=== PATIENT | male | born 1970 | race Two or more races ===

== ENCOUNTER 2019-06-27 08:06 | Inpatient (IN) | payer OTHER ==
[2019-06-27 08:43] VITALS: BMI 20.8
--- NOTE | 2019-06-27 08:57 | HP ---
COWS - Scale Resting Pulse: 0= [place] 80 or Below Sweatin= Chills/Flushing Restless Observation: 5= Unable to Sit Still Pupil Size: 1= Pupils >than Normal Bone or Joint Aches: 2= Severe Diffuse Aches Runny Nose/ Eye Tearin= Runny Nose/Eyes GI Upset > 30mins: 2= Nausea/Diarrhea Tremor Observation: 1= Tremor [place], Not Seen Yawning Observation: 2= >3x During Session Anxiety or Irritability: 2=Irritable/Anxious Goose Flesh Skin: 0=Smooth Skin COWS Score: 18 CIWA Score - Admission Criteria OASAS Guidelines: Admission for Medically Managed Detox: Requires at least one of the followin. CIWA greater than 12 2. Seizures within the past 24 hours 3. Delirium tremens within the past 24 hours 4. Hallucinations within the past 24 hours 5. Acute intervention needed for co occurring medical disorder 6. Acute intervention needed for co occurring psychiatric disorder 7. Severe withdrawal that cannot be handled at a lower level of care (continued vomiting, continued diarrhea, abnormal vital signs) requiring intravenous medication and/or fluids 8. Admitting History and Physical - Smoking History Smoking history: Current every day smoker Have you smoked in the past 12 months: Yes Aproximately how many cigarettes per day: 10 - Alcohol/Substance Use Hx Alcohol Use: No Admission ROS [facility] Allergies/Adverse Reactions: Allergies Allergy/AdvReac Type Severity Reaction Status Date / Time No Known Allergies Allergy Verified 06/27/19 08:34 History of Present Illness: Search Terms: laith kamara, 1970 Search Date: 06/27/2019 08:52:24 AM This report was requested by: Brianna Ernandez | Reference #: [id number] There are no results for the search terms that you entered. pt here requesting detox from heroin use , reports 5 bundles /day iv in UE , needles from store , + abscess , denies OD , latest use yesterday , current symptoms as above cocaine : via inhalation " not a lot " daily cannabis : daily use " a little bit " tobacco : 1/2 ppd denies etoh denies other illicits Exam Limitations: Clinical Condition - Ebola screening Have you traveled outside of the country in the last 21 days: No (N) Have you had contact with anyone from an Ebola affected area: No - Review of Systems Constitutional: Loss of Appetite EENT: reports: See HPI, Nose Congestion Respiratory: reports: No Symptoms reported Cardiac: reports: No Symptoms Reported GI: reports: See HPI : reports: No Symptoms Reported Musculoskeletal: reports: See HPI Integumentary: reports: See HPI Neuro: reports: No Symptoms reported Endocrine: reports: No Symptoms Reported Psychiatric: reports: Orientated x3, Agitated, Anxious Patient History - Patient Medical History Hx Anemia: No Hx Asthma: Yes (Pt is on MDI) Hx Chronic Obstructive Pulmonary Disease (COPD): No Hx Cancer: No Hx Cardiac Disorders: No Hx Hypertension: No Hx Hypercholesterolemia: No Hx Pacemaker: No HX Cerebrovascular Accident: No Hx Seizures: No Hx Diabetes: No Hx Gastrointestinal Disorders: No Hx Liver Disease: No Hx Genitourinary Disorders: No Hx Sexually Transmitted Disorders: No Hx Renal Disease (ESRD): No Hx Thyroid Disease: No Hx Human Immunodeficiency Virus (HIV): No (neg 2008) Hx Hepatitis C: No Hx Depression: Yes Hx Suicide Attempt: No Hx Bipolar Disorder: No Hx Schizophrenia: No - Patient Surgical History Past Surgical History: No - PPD History Date: 07/09/15 - Smoking Cessation Smoking history: Current every day smoker Have you smoked in the past 12 months: Yes Aproximately how many cigarettes per day: 10 Cigars Per Day: 0 Hx Chewing Tobacco Use: No Initiated information on smoking cessation: Yes 'Breaking Loose' booklet given: 06/27/19 - Substances abused Heroin Substance route: Injection Frequency: Daily Amount used: 5 bundles Age of first use: 32 Date of last use: 06/26/19 Admission Physical Exam S - Vital Signs Vital Signs: Vital Signs - 24 hr 06/27/19 08:33 Temperature 97.0 F L Pulse Rate 60 Respiratory 18 Rate Blood Pressure 121/67 - Physical General Appearance: Yes: Moderate Distress, Anxious HEENTM: Yes: EOMI, Hearing grossly Normal, Normocephalic, Normal Voice, Nasal Congestion, Rhinorrhea Respiratory: Yes: Chest Non-Tender, Lungs Clear, Normal Breath Sounds, No Respiratory Distress, No Accessory Muscle Use Neck: Yes: No masses,lesions,Nodules, Trachea in good position Cardiology: Yes: Regular Rhythm, Regular Rate, S1, S2 Abdominal: Yes: Non Tender, Soft Musculoskeletal: Yes: Gait Steady Extremities: Yes: Normal Capillary Refill, Normal Inspection, Normal Range of Motion, Non-Tender, Other (clubbing x 10) Neurological: Yes: Fully Oriented, Alert, Motor Strength 5/5, Depressed Affect Integumentary: Yes: Dry, Warm, Track Lloyd (rachael UE) - Diagnostic (1) Cannabis dependence Current Visit: Yes Status: Chronic (2) Cocaine dependence Current Visit: Yes Status: Chronic Qualifiers: Substance use status: uncomplicated Qualified Code(s): F14.20 - Cocaine dependence, uncomplicated (3) Nicotine dependence, uncomplicated Current Visit: Yes Status: Chronic Qualifiers: Nicotine product type: cigarettes Qualified Code(s): F17.210 - Nicotine dependence, cigarettes, uncomplicated (4) Opioid dependence with withdrawal Current Visit: Yes Status: Chronic Breathalyzer - Breathalyzer Breathalyzer: 0 Urine Drug Screen - Test Device Lot number: [id number] Expiration date: 02/16/21 - Results Drug screen NEGATIVE: No Urine drug screen results: THC-Marijuana, DANIELLA-Cocaine, MOP-Opiates Inpatient Rehab Admission - Rehab Decision to Admit Inpatient rehab admission?: No
[2019-06-27] MEDS ORDERED: MAGNESIUM HYDROX 2400MG/30ML ORAL SUSPENSION 30 ML CUP PO PRN (09:00)
[2019-06-27] MEDS ORDERED: ACETAMINOPHEN 325 MG TABLET (FP) PO PRN ×2 (09:00)
[2019-06-27] MEDS ORDERED: BISMUTH SUBSALICYLATE 262 MG/15 ML BTL PO PRN (09:00)
[2019-06-27] MEDS ORDERED: MENTHOL/PHENOL 1 EACH UD MM PRN (09:00)
[2019-06-27] MEDS ORDERED: MAGNESIUM CITRATE 300 ML BOTTLE PO PRN (09:00)
[2019-06-27] MEDS ORDERED: MAG HYDROX/AL HYDROX/SIMETH 30 ML UNIT-DOSE CUP PO PRN (09:00)
[2019-06-27] MEDS ORDERED: IBUPROFEN 400 MG TABLET (FP) PO PRN (09:00)
[2019-06-27] MEDS ORDERED: cloNIDine HCL 0.1 MG TABLET PO PRN (09:01)
[2019-06-27] MEDS ORDERED: METHADONE HCL 10 MG TABLET (FOR DETOX USE ONLY) PO ONE (09:01)
[2019-06-27] MEDS: PRENATAL VITAMINS W/ FOLIC ACID TABLET (FP) PO SCH (09:29)
[2019-06-27] MEDS: METHOCARBAMOL 500 MG TABLET PO PRN (10:06)
[2019-06-27] MEDS: THIAMINE HCL 100 MG TABLET (FP) PO SCH (22:13)
[2019-06-27] MEDS: MELATONIN 5 MG TABLETS PO PRN (22:13)
[2019-06-28] MEDS ORDERED: METHADONE (DETOX) 20 MG, METHADONE (DETOX) 5 MG PO ONE (10:00)
[2019-06-28] MEDS ORDERED: METHADONE HCL 5 MG TABLET (FOR DETOX USE ONLY) ONE (10:16)
[2019-06-28] MEDS ORDERED: METHADONE HCL 10 MG TABLET (FOR DETOX USE ONLY) ONE (10:16)
[2019-06-28] MEDS: PRENATAL VITAMINS W/ FOLIC ACID TABLET (FP) PO SCH (10:48)
[2019-06-28 11:03] LABS: ALBUMIN 3.2 g/dl (3.4-5.0); BILIRUBIN,TOTAL 0.4 mg/dL (0.2-1); BLOOD UREA NITROGEN 17.9 mg/dL (7-18); CREATININE 0.9 mg/dL (0.55-1.3); POTASSIUM 4.3 mmol/L (3.5-5.1); TOT PROT 6.8 g/dl (6.4-8.2)
[2019-06-28 11:04] LABS: HEMATOCRIT 37.3 % (35.4-49); HEMOGLOBIN 12.2 GM/dL (11.7-16.9); MCH 27.9 pg (25.7-33.7); MCHC 32.7 g/dl (32.0-35.9); MEAN CELL VOLUME 85.4 fl (80-96); MEAN PLT VOLUME 8.4 fl (7.5-11.1); PLATELET COUNT 236 K/MM3 (134-434); RBC 4.37 M/mm3 (4.00-5.60); RDW 14.7 % (11.9-15.9); WHITE BLOOD COUNT 7.6 K/mm3 (4.0-10.0)
[2019-06-28] MEDS ORDERED: ONDANSETRON *ODT* 4 MG TABLET SL PRN (11:53)
--- NOTE | 2019-06-28 11:53 | PN ---
BHS COWS - Scale Resting Pulse: 0= [place] 80 or Below Sweatin= Chills/Flushing Restless Observation: 1= Difficult to Sit Still Pupil Size: 0= Normal to Room Light Bone or Joint Aches: 2= Severe Diffuse Aches Runny Nose/ Eye Tearin= Runny Nose/Eyes GI Upset > 30mins: 2= Nausea/Diarrhea Tremor Observation of Outstretched Hands: 2= Slight Tremor Visible Yawning Observation: 1= 1-2x During Session Anxiety or Irritability: 2=Irritable/Anxious Goose Flesh Skin: 0=Smooth Skin COWS Score: 13 BHS Progress Note (SOAP) Subjective: sweats shakes chills nausea interrupted sleep irritable agitation Objective: 06/28/19 11:52 Vital Signs Temperature 97.7 F 06/28/19 09:37 Pulse Rate 54 L 06/28/19 09:37 Respiratory Rate 18 06/28/19 09:37 Blood Pressure 112/72 06/28/19 09:37 O2 Sat by Pulse Oximetry (%) Laboratory Tests 06/28/19 06/28/19 07:50 07:50 WBC 7.6 RBC 4.37 Hgb 12.2 Hct 37.3 MCV 85.4 MCH 27.9 MCHC 32.7 RDW 14.7 Plt Count 236 D MPV 8.4 Sodium 137 Potassium 4.3 Chloride 103 Carbon Dioxide 29 Anion Gap 5 L BUN 17.9 Creatinine 0.9 Est GFR (CKD-EPI)AfAm 118.30 Est GFR (CKD-EPI)NonAf 102.07 Random Glucose 107 H Calcium 9.0 Total Bilirubin 0.4 AST 23 ALT 28 Alkaline Phosphatase 83 Total Protein 6.8 Albumin 3.2 L labs noted aaox3 ambulating no acute distress Assessment: 06/28/19 11:52 withdrawals sx Plan: continue detox increase fluids zofran sl prn
[2019-06-28] MEDS ORDERED: FLU VACCINE QUAD 60 MCG/0.5 ML (MDV 19-20) IM ONE (12:00)
[2019-06-28] MEDS: diazePAM 5 MG TABLET PO PRN (18:37)
[2019-06-28] MEDS: THIAMINE HCL 100 MG TABLET (FP) PO SCH (22:24)
[2019-06-28] MEDS: MELATONIN 5 MG TABLETS PO PRN (22:25)
[2019-06-29] MEDS ORDERED: METHADONE HCL 10 MG TABLET (FOR DETOX USE ONLY) PO ONE (10:00)
[2019-06-29] MEDS: PRENATAL VITAMINS W/ FOLIC ACID TABLET (FP) PO SCH (10:42)
--- NOTE | 2019-06-29 14:07 | PN ---
BHS COWS - Scale Resting Pulse: 0= [place] 80 or Below Sweatin= Chills/Flushing Restless Observation: 0= Sits Still Pupil Size: 0= Normal to Room Light Bone or Joint Aches: 2= Severe Diffuse Aches Runny Nose/ Eye Tearin= Runny Nose/Eyes GI Upset > 30mins: 2= Nausea/Diarrhea Tremor Observation of Outstretched Hands: 2= Slight Tremor Visible Yawning Observation: 0= None Anxiety or Irritability: 2=Irritable/Anxious Goose Flesh Skin: 0=Smooth Skin COWS Score: 11 BHS Progress Note (SOAP) Subjective: Diarrhea, tremor, chills, sweating (sweating like a dog as per patient), interrupted sleep. As per RN, patient's PPD is positive. As per chart review, patient has history of positive PPD and had negative chest xray on 07/12/15. Objective: 06/29/19 14:07 Last Vital Signs Temp Pulse Resp BP Pulse Ox 97.9 F 54 L 16 121/64 06/29/19 09:35 06/29/19 09:35 06/29/19 09:35 06/29/19 09:35 Laboratory Tests 06/28/19 06/28/19 06/28/19 07:50 07:50 07:50 WBC 7.6 RBC 4.37 Hgb 12.2 Hct 37.3 MCV 85.4 MCH 27.9 MCHC 32.7 RDW 14.7 Plt Count 236 D MPV 8.4 Sodium 137 Potassium 4.3 Chloride 103 Carbon Dioxide 29 Anion Gap 5 L BUN 17.9 Creatinine 0.9 Est GFR (CKD-EPI)AfAm 118.30 Est GFR (CKD-EPI)NonAf 102.07 Random Glucose 107 H Calcium 9.0 Total Bilirubin 0.4 AST 23 ALT 28 Alkaline Phosphatase 83 Total Protein 6.8 Albumin 3.2 L RPR Titer Nonreactive Labs reviewed Assessment: 06/29/19 14:08 Withdrawal sxs Plan: Continue detox Encouraged PO water intake History of Positive PPD: asymptomatic, will document as dx Obtain chest xray in AM as last chest xray was on 06/2015
[2019-06-29] MEDS: diazePAM 5 MG TABLET PO PRN ×2 (17:50→22:37)
[2019-06-29] MEDS: THIAMINE HCL 100 MG TABLET (FP) PO SCH (22:35)
[2019-06-30] MEDS: diazePAM 5 MG TABLET PO PRN (05:40)
[2019-06-30] MEDS ORDERED: METHADONE HCL 10 MG TABLET (FOR DETOX USE ONLY) ONE (09:54)
[2019-06-30] MEDS ORDERED: METHADONE HCL 5 MG TABLET (FOR DETOX USE ONLY) ONE (09:54)
[2019-06-30] MEDS ORDERED: METHADONE (DETOX) 10 MG, METHADONE (DETOX) 5 MG PO ONE (10:00)
[2019-06-30] MEDS: PRENATAL VITAMINS W/ FOLIC ACID TABLET (FP) PO SCH (10:48)
--- NOTE | 2019-06-30 12:18 | PN ---
BHS COWS - Scale Resting Pulse: 0= [place] 80 or Below Sweatin= No chills or Flushing Restless Observation: 1= Difficult to Sit Still Pupil Size: 1= Pupils >than Normal Bone or Joint Aches: 1= Mild Discomfort Runny Nose/ Eye Tearin= Runny Nose/Eyes GI Upset > 30mins: 1= Stomach Cramp Tremor Observation of Outstretched Hands: 1= Tremor [place], Not Seen Yawning Observation: 1= 1-2x During Session Anxiety or Irritability: 1=Feels Anxious/Irritable Goose Flesh Skin: 0=Smooth Skin COWS Score: 9 BHS Progress Note (SOAP) Subjective: alert,irritable,anxious,interrupted sleep,pain in the body and back Objective: 06/30/19 12:17 Vital Signs Temperature 98.4 F 06/30/19 09:43 Pulse Rate 68 06/30/19 09:43 Respiratory Rate 18 06/30/19 09:43 Blood Pressure 122/70 06/30/19 09:43 O2 Sat by Pulse Oximetry (%) Assessment: 06/30/19 12:18 withdrawal symptom Plan: continue detox methadone regimen
[2019-06-30] MEDS: hydrOXYzine PAMOATE 25 MG CAPSULE (FP) PO PRN ×2 (14:41→22:26)
[2019-06-30] MEDS: MELATONIN 5 MG TABLETS PO PRN (22:26)
[2019-06-30] MEDS: METHOCARBAMOL 500 MG TABLET PO PRN (22:26)
[2019-06-30] MEDS: THIAMINE HCL 100 MG TABLET (FP) PO SCH (22:26)
[2019-07-01] MEDS ORDERED: METHADONE HCL 10 MG TABLET (FOR DETOX USE ONLY) PO ONE (10:00)
[2019-07-01] MEDS: PRENATAL VITAMINS W/ FOLIC ACID TABLET (FP) PO SCH (10:17)
[2019-07-01] MEDS: hydrOXYzine PAMOATE 25 MG CAPSULE (FP) PO PRN (10:19)
--- NOTE | 2019-07-01 13:40 | PN ---
BHS COWS - Scale Resting Pulse: 0= [place] 80 or Below Sweatin= No chills or Flushing Restless Observation: 1= Difficult to Sit Still Pupil Size: 0= Normal to Room Light Bone or Joint Aches: 1= Mild Discomfort Runny Nose/ Eye Tearin= Nasal Congestion GI Upset > 30mins: 0= None Tremor Observation of Outstretched Hands: 1= Tremor [place], Not Seen Yawning Observation: 1= 1-2x During Session Anxiety or Irritability: 1=Feels Anxious/Irritable Goose Flesh Skin: 0=Smooth Skin COWS Score: 6 BHS Progress Note (SOAP) Subjective: sweats feeling better Objective: 07/01/19 13:36 Vital Signs Temperature 97.1 F L 07/01/19 13:04 Pulse Rate 80 07/01/19 13:04 Respiratory Rate 18 07/01/19 13:04 Blood Pressure 131/80 07/01/19 13:04 O2 Sat by Pulse Oximetry (%) aaox3 ambulating no acute distress Assessment: 07/01/19 13:36 mild withdrawal sx Plan: continue detox increase fluids d/c in am
[2019-07-01] MEDS: MELATONIN 5 MG TABLETS PO PRN (22:22)
[2019-07-01] MEDS: THIAMINE HCL 100 MG TABLET (FP) PO SCH (22:22)
[2019-07-02] MEDS: hydrOXYzine PAMOATE 25 MG CAPSULE (FP) PO PRN ×2 (05:52→22:30)
[2019-07-02] MEDS ORDERED: METHADONE HCL 5 MG TABLET (FOR DETOX USE ONLY) PO ONE (06:00)
--- NOTE | 2019-07-02 08:52 | PN ---
BHS COWS - Scale Resting Pulse: 0= [place] 80 or Below Sweatin= No chills or Flushing Restless Observation: 1= Difficult to Sit Still Pupil Size: 1= Pupils >than Normal Bone or Joint Aches: 1= Mild Discomfort Runny Nose/ Eye Tearin= Nasal Congestion GI Upset > 30mins: 1= Stomach Cramp Tremor Observation of Outstretched Hands: 1= Tremor [place], Not Seen Yawning Observation: 1= 1-2x During Session Anxiety or Irritability: 1=Feels Anxious/Irritable Goose Flesh Skin: 0=Smooth Skin COWS Score: 8 BHS Progress Note (SOAP) Subjective: alert,irritable,anxious,interrupted sleep,pain in the body and back Objective: 07/02/19 08:51 Vital Signs Temperature 97.9 F 07/02/19 07:20 Pulse Rate 60 07/02/19 07:20 Respiratory Rate 18 07/02/19 07:20 Blood Pressure 129/76 07/02/19 07:20 O2 Sat by Pulse Oximetry (%) Assessment: 07/02/19 08:51 withdrawal symptom Plan: continue detox methadone regimen,,still have withdrawal symptom,will monitoring patient for 24 hrs, possible discharge in am
[2019-07-02] MEDS: PRENATAL VITAMINS W/ FOLIC ACID TABLET (FP) PO SCH (11:18)
[2019-07-02] MEDS: THIAMINE HCL 100 MG TABLET (FP) PO SCH (22:28)
[2019-07-03 06:18] VITALS: TEMP 97.7
--- NOTE | 2019-07-03 08:41 | DS ---
[facility] Detox Discharge Summary Admission Date: 06/27/19 Discharge Date: 07/03/19 - History Present History: Cannabis Dependence, Cocaine Dependence, Opioid Dependence - Physical Exam Results Vital Signs: Vital Signs Temperature 97.7 F 07/03/19 06:18 Pulse Rate 53 L 07/03/19 06:18 Respiratory Rate 16 07/03/19 06:18 Blood Pressure 116/68 07/03/19 06:18 O2 Sat by Pulse Oximetry (%) Pertinent Admission Physical Exam Findings: pt arrived in withdrawals Vital Signs Temperature 97.7 F 07/03/19 06:18 Pulse Rate 53 L 07/03/19 06:18 Respiratory Rate 16 07/03/19 06:18 Blood Pressure 116/68 07/03/19 06:18 O2 Sat by Pulse Oximetry (%) Laboratory Tests 06/28/19 06/28/19 06/28/19 07:50 07:50 07:50 WBC 7.6 RBC 4.37 Hgb 12.2 Hct 37.3 MCV 85.4 MCH 27.9 MCHC 32.7 RDW 14.7 Plt Count 236 D MPV 8.4 Sodium 137 Potassium 4.3 Chloride 103 Carbon Dioxide 29 Anion Gap 5 L BUN 17.9 Creatinine 0.9 Est GFR (CKD-EPI)AfAm 118.30 Est GFR (CKD-EPI)NonAf 102.07 Random Glucose 107 H Calcium 9.0 Total Bilirubin 0.4 AST 23 ALT 28 Alkaline Phosphatase 83 Total Protein 6.8 Albumin 3.2 L RPR Titer Nonreactive today pt is aaox 3 ambulating no acute distress no s/s of withdrawals - Treatment Hospital Course: Detox Protocol Followed, Detoxed Safely, Responded well, Discharged Condition Good, Rehab Referral Accepted Patient has Accepted a Rehab Referral to: referred to [facility] AT[facility] - Diagnosis (1) History of positive PPD Current Visit: Yes Status: Acute (2) Cannabis dependence Current Visit: Yes Status: Chronic (3) Cocaine dependence Current Visit: Yes Status: Chronic Qualifiers: Substance use status: uncomplicated Qualified Code(s): F14.20 - Cocaine dependence, uncomplicated (4) Nicotine dependence, uncomplicated Current Visit: Yes Status: Chronic Qualifiers: Nicotine product type: cigarettes Qualified Code(s): F17.210 - Nicotine dependence, cigarettes, uncomplicated (5) Opioid dependence with withdrawal Current Visit: Yes Status: Chronic (6) Asthma Current Visit: No Status: Acute Qualifiers: Asthma severity: mild Asthma complication type: unspecified (7) Substance induced mood disorder Current Visit: No Status: Acute - AMA Did Patient Leave Against Medical Advice: No
[2019-07-03 09:45] VITALS: BP 118/67; PULSE 66
== END 2019-07-03 10:35 | disposition home or self-care (01) | DRG 773 ==
LOC: YASAS 08:06 → Y6N 09:03
PROVIDERS: ADMIT Allergy & Immunology; ATTEND Allergy & Immunology
PROC: HZ2ZZZZ Detoxification Services for Substance Abuse Treatment (ICD-10-PCS; principal; 2019-06-27)
DX: F11.23 Opioid dependence with withdrawal (principal); F14.20 Cocaine dependence, uncomplicated; F12.20 Cannabis dependence, uncomplicated; F17.210 Nicotine dependence, cigarettes, uncomplicated; F19.24 Other psychoactive substance dependence with psychoactive substance-induced mood disorder; J45.909 Unspecified asthma, uncomplicated; R76.11 Nonspecific reaction to tuberculin skin test without active tuberculosis
CPT/HCPCS: 36415; 71046-TC-FY; 80053; 85027; 86593; J0735